=== PATIENT | male | born 1980 | race Caucasian/White ===

== ENCOUNTER 2018-11-16 22:33 | Emergency (ER) | payer OTHER ==
[~2018-11-16] VITALS: Ht 190.5 cm; Wt 100.0 kg
[2018-11-16 22:36] VITALS: BP 150/102
--- NOTE | 2018-11-16 22:41 | NUR ---
CEJA PA ASSESSED PATIENT PRIOR TO TRIAGE VERBALIZED THERE WILL NOT BE A NEED TO PLACE PATIENT IN [facility]
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
== END 2018-11-17 00:49 | disposition home or self-care (01) ==
LOC: ER 22:34
DX: M54.6 Pain in thoracic spine (principal); V49.40XA Driver injured in collision with unspecified motor vehicles in traffic accident, initial encounter; Y93.89 Activity, other specified; Y92.488 Other paved roadways as the place of occurrence of the external cause; Y99.8 Other external cause status
CPT/HCPCS: 72070; 99283

== ENCOUNTER 2019-08-17 13:18 | Emergency (ER) | payer OTHER ==
[~2019-08-17] VITALS: Ht 190.5 cm; Wt 97.7 kg
[2019-08-17 13:25] VITALS: BP 122/76
[2019-08-17] MEDS ORDERED: AMOX-422 PO (14:03)
[2019-08-17] MEDS ORDERED: TETanus/Pertussis (Acell)/Diphther VAC/PF (Tdap-Adult) 0.5ml syringe IM ONE (14:05)
[2019-08-17 15:04] LABS: HIV ANTIBODY 1&2 RAPID NON-REACTIVE (Neg)
[2019-08-19 11:16] LABS: HEP B CORE AB, IGM Negative (Negative); HEP B CORE AB, TOT Negative (Negative); HEPATITIS C ANTIBODY <0.1 s/co ratio (0.0-0.9)
== END 2019-08-17 14:30 | disposition home or self-care (01) ==
LOC: ER 13:19
DX: S51.852A Open bite of left forearm, initial encounter (principal); S00.411A Abrasion of right ear, initial encounter; W50.3XXA Accidental bite by another person, initial encounter; Y93.89 Activity, other specified; Y92.89 Other specified places as the place of occurrence of the external cause; Y99.9 Unspecified external cause status
CPT/HCPCS: 36415; 86703; 86704; 86705; 86706; 86803; 90471; 99283